=== PATIENT | female | born 1970 | race Caucasian/White ===

== ENCOUNTER 2016-07-06 17:30 | Emergency (ER) | payer MEDICAID ==
[~2016-07-06] VITALS: Ht 167.6 cm; Wt 77.3 kg
[~2016-07-06 17:30] MED LIST: FLUO40CA9 PO; LEVO75TA PO; [UNRECOGNIZED DRUG - OTHER] PO
[2016-07-06 17:35] VITALS: BP 118/78
[2016-07-06 19:36] LABS: BLOOD UREA NITROGEN 8 mg/dL (7-18)
== END 2016-07-06 19:51 | disposition home or self-care (01) ==
LOC: ED 19:45
DX: L03.116 Cellulitis of left lower limb (principal); Z88.6 Allergy status to analgesic agent
CPT/HCPCS: 36415; 80048; 85025; 99284

== ENCOUNTER 2016-07-26 06:05 | Emergency (ER) | payer MEDICAID ==
[~2016-07-26] VITALS: Ht 167.6 cm; Wt 78.8 kg
[2016-07-26] MEDS ORDERED: SODIUM CHLORIDE 0.9% 1,000 ML IV ONE (06:50)
[2016-07-26] MEDS ORDERED: SODIUM CHLORIDE 0.9% 1,000ML IVBOLUS ONE (07:00)
[2016-07-26 08:02] LABS: BLOOD UREA NITROGEN 8 mg/dL (7-18)
[2016-07-26 08:22] VITALS: BP 131/77
== END 2016-07-26 08:24 | disposition home or self-care (01) ==
LOC: ED 06:24
DX: L03.116 Cellulitis of left lower limb (principal)
CPT/HCPCS: 36415; 80048; 82040; 83605; 84145; 84703; 85025; 87040; 93971; 96360; 99285; J7030

== ENCOUNTER 2018-07-22 20:59 | Emergency (ER) | payer MEDICAID, OTHER ==
[~2018-07-22] VITALS: Ht 167.6 cm; Wt 71.2 kg
[2018-07-22 21:00] VITALS: BP 122/75
[2018-07-22] MEDS ORDERED: HYDROcodone/APAP 5/325 TABLET PO ONE (21:30)
[2018-07-22] MEDS ORDERED: CLINDAMYCIN 150 MG/ML, 6ML ONE (21:43)
[2018-07-22] MEDS ORDERED: HYDROcodone/APAP 5/325 TABLET ONE (21:52)
[2018-07-22] MEDS ORDERED: LIDOCAINE 1%-EPI 1:100K, 20ML SQ ONE (22:00)
[2018-07-22] MEDS ORDERED: CLINDAMYCIN 150 MG/ML, 6ML IM ONE (22:00)
[2018-07-22] MEDS ORDERED: LIDOCAINE 2%-EPI 1:100K, 20ML SQ ONE (22:00)
--- NOTE | 2018-07-22 22:10 | NUR ---
DENTAL BLOCK COMPLETED BY DAVY BECKER, LIDOCAINE ADMINISTERED BY DAVY, CHARTED BY THIS RN BY PROXY. DENTAL I&D COMPLETED BY DAVY BECKER. PT MEDICATED PER EMAR WITH NORCO AND CLINDAMYCIN, TOLERATED WELL.
--- NOTE | 2018-07-22 22:16 | NUR ---
report given to KRYSTIN Barton.
--- NOTE | 2018-07-22 22:17 | NUR ---
[facility] report received from RN, María. Pt resting on carey, dental block complete, waiting on d/c paperwork.
--- NOTE | 2018-07-22 22:32 | NUR ---
Patient/Caregiver given discharge instructions and they have confirmed that they understand the instructions. Patient ambulatory with steady gait.
== END 2018-07-22 22:34 | disposition home or self-care (01) ==
LOC: ED 21:52
DX: K04.7 Periapical abscess without sinus (principal)
CPT/HCPCS: 41800; 96372; 99283; S0077